=== PATIENT | female | born 1990 | race Caucasian/White ===

== ENCOUNTER → 2019-01-01 11:34 | Outpatient (CLI) | payer OTHER, MEDICAID, SELFPAY ==
[2019-01-01 12:32] LABS: Hematocrit 38.9 % (36-46); Hemoglobin 13.1 g/dL (12.0-16.0); Mean Corpuscular HGB Conc 33.7 % (30-36); Mean Corpuscular Hemoglobin 31.7 PG (26-34); Mean Corpuscular Volume 94.1 fL (80-100); Platelet Count 282 X10^3/uL (150-400); Red Blood Cell Count 4.14 X10^6/uL (4.0-5.2); White Blood Cell Count 7.6 X10^3/uL (4.5-11.0)
[2019-01-01 12:55] LABS: Alanine Aminotransferase 11 IU/L (<35); Albumin 4.3 g/dL (3.5-5.0); Albumin Globulin Ratio 1.5 (1.0-2.8); Alkaline Phosphatase 68 U/L (38-126); Aspartate Aminotransferase 20 IU/L (14-36); BUN Creatinine Ratio 8.9 (6-22); Bilirubin Total 0.3 mg/dL (0.2-1.3); Blood Urea Nitrogen 8 mg/dL (7-17); Calcium 9.5 mg/dL (8.4-10.2); Carbon Dioxide 26 mmol/L (22-32); Chloride 105 mmol/L (98-107); Cholesterol 142 mg/dL (140-199); Estimated Glomerular Filt Rate > 60.0 mL/min (>60); Globulin 2.9 g/dL (1.7-4.1); Glucose 95 mg/dL (70-100); HDL Cholesterol 45 mg/dL (40-60); HEMOLYSIS < 15 (0-50); LDL Cholesterol Calculated 85 mg/dL (<100); Potassium 4.4 mmol/L (3.4-5.1); Sodium 141 mmol/L (137-145); Total Protein 7.2 g/dL (6.3-8.2); Triglycerides 59 mg/dL (35-150)
== END ==
PROVIDERS: PCP Nurse Practitioner Family; Visit Provider Nurse Practitioner Family
DX: Z00.00 Encounter for general adult medical examination without abnormal findings (principal); Z13.6 Encounter for screening for cardiovascular disorders
CPT/HCPCS: 36415; 80053; 80061; 85027

== ENCOUNTER → 2019-04-12 16:35 | Outpatient (CLI) | payer OTHER, MEDICAID, SELFPAY ==
--- NOTE | 2019-04-19 16:27 | PM.PFT.1 ---
Pulmonary Function Test Referral & Results Date Patient Seen: 04/12/19 Requesting provider: Vannessa Jean Results: The spirometry demonstrates an FVC of 3.76 L which is 102% of predicted. The FEV1 was measured at 3.35 L which is 107% of predicted. The FEV1/FVC ratio was 89 which is 104% of predicted. Following the administration of bronchodilator there was no appreciable change to above normal numbers. Lung volumes show an SVC of 3.43 L which is 94% of predicted. The diffusing capacity was measured at 24.34 which is 106% of predicted. The maximum voluntary ventilation was minimally reduced Interpretation: This study demonstrates normal pulmonary function
== END ==
PROVIDERS: PCP Nurse Practitioner Family; Referring Provider Nurse Practitioner Family; Visit Provider Nurse Practitioner Family
DX: R06.02 Shortness of breath (principal); F17.200 Nicotine dependence, unspecified, uncomplicated
CPT/HCPCS: 94060; 94726; 94729

== ENCOUNTER 2019-10-22 17:31 | Emergency (ER) | payer OTHER, MEDICAID, SELFPAY ==
[2019-10-22 17:35] VITALS: BP 126/87; PULSE 66; RESP 20; O2SAT 99
--- NOTE | 2019-10-22 17:37 | DI.RAD.S_ITS ---
PROCEDURE: XR WRIST LT MIN 3V INDICATIONS: glf, lt wrist/elbow/shoulder pain TECHNIQUE: 4 views of the wrist were acquired. COMPARISON: [facility], CR, XR SHOULDER LT MIN 2V, 10/22/2019, 17:27. [facility], CR, XR ELBOW LT MIN 3V, 10/22/2019, 17:27. FINDINGS: Bones: No fractures or dislocations. No suspicious bony lesions. Scaphoid view: No navicular fractures are seen. Soft tissues: No suspicious soft tissue calcifications. IMPRESSION: No displaced fractures are seen. If there is snuffbox tenderness (or other clinical suspicion for a fracture not seen on these images) then a repeat examination would be recommended in 10 to 14 days, following splinting. Dictated by: Aníbal Nelson M.D. on 10/22/2019 at 16:57 Approved by: Aníbal Nelson M.D. on 10/22/2019 at 16:58
--- NOTE | 2019-10-22 17:37 | DI.RAD.S_ITS ---
PROCEDURE: XR ELBOW LT MIN 3V INDICATIONS: glf, lt wrist/elbow/shoulder pain TECHNIQUE: 3 views of the elbow were acquired. COMPARISON: [facility], CR, XR SHOULDER LT MIN 2V, 10/22/2019, 17:27. [facility], CR, XR WRIST LT MIN 3V, 10/22/2019, 17:27. FINDINGS: Bones: No fractures or dislocations. No suspicious bony lesions. Soft tissues: No elbow joint effusion. No suspicious soft tissue calcifications. IMPRESSION: No significant plain film abnormality is seen. Dictated by: Aníbal Nelson M.D. on 10/22/2019 at 16:57 Approved by: Aníbal Nelson M.D. on 10/22/2019 at 16:57
--- NOTE | 2019-10-22 17:38 | DI.RAD.S_ITS ---
PROCEDURE: XR SHOULDER LT MIN 2V INDICATIONS: glf, lt wrist/elbow/shoulder pain TECHNIQUE: 3 views of the shoulder were acquired. COMPARISON: [facility], CR, XR ELBOW LT MIN 3V, 10/22/2019, 17:27. [facility], CR, XR WRIST LT MIN 3V, 10/22/2019, 17:27. FINDINGS: Bones: No fractures or dislocations. No suspicious bony lesions. Visualized ribs appear intact. Soft tissues: No suspicious soft tissue calcifications. The visualized lung demonstrates an unremarkable appearance. IMPRESSION: Normal shoulder plain films. Dictated by: Aníbal Nelson M.D. on 10/22/2019 at 16:56 Approved by: Aníbal Nelson M.D. on 10/22/2019 at 16:57
--- NOTE | 2019-10-22 17:42 | ED.UPPEXIN ---
HPI - Extremity Injury (Upper) General Chief Complaint: Extremity Injury, Upper Stated Complaint: LEFT ARM INJURY, WRIST TO SHOULDER Time Seen by Provider: 10/22/19 17:35 Source: patient Mode of arrival: Ambulatory Limitations: no limitations History of Present Illness HPI narrative: Patient is a 29-year-old female who presents with left arm injury. She tripped going up a couple stairs and landed on her left side. Her shoulder hurts her elbow hurts her wrist hurts. She says she had a hard time driving over here. She denies any other injury she has no numbness tingling or weakness. MD complaint: injury to: left, shoulder, arm, elbow and wrist Related Data Previous Rx's Medication Instructions Recorded hydroxyzine pamoate 25 mg capsule 25 mg PO BID PRN #60 cap 01/01/19 albuterol sulfate 90 mcg/actuation 2 puff INHALATION Q4-6H PRN #8.5 02/27/19 aerosol inhaler gram mometasone 100 mcg/actuation HFA 1 puff INHALATION BID #13 gram 02/27/19 aerosol inhaler sertraline 50 mg tablet 50 mg PO DAILY #90 tab 02/27/19 fluticasone propionate 50 2 spray NASAL DAILY #9.9 ml 04/19/19 mcg/actuation nasal spray,suspension baclofen 10 mg tablet 10 mg PO BID #60 tab 07/30/19 omeprazole 20 mg capsule,delayed 20 mg PO DAILY #90 cap 08/20/19 release naproxen 500 mg tablet 500 mg PO BID #90 tab 09/11/19 montelukast 10 mg tablet 10 mg PO DAILY #90 tab 09/16/19 Allergies Allergy/AdvReac Type Severity Reaction Status Date / Time peanut Allergy Unknown unsure, Verified 07/30/19 15:20 was tested and showed allergy Review of Systems Review of Systems Narrative: GENERAL: Denies chills,fever HEENT: Denies throat pain RESPIRATORY: Denies dyspnea, cough, wheezing CARDIOVASCULAR: Denies chest pain, palpitations GASTROINTESTINAL: Denies nausea, vomiting MUSCULOSKELETAL: See HPI SKIN: No rash, no laceration, no pruritus NEUROLOGIC: Denies weakness, dizziness, headache, numbness 8 point review of systems is negative except for those stated above and HPI Patient History Medical History Acne (Chronic) ADHD (Chronic) Allergies (Chronic) Anxiety (Acute) Asthma (Chronic) Chronic back pain (Chronic) Depression (Acute) GERD (gastroesophageal reflux disease) (Acute 1999) Headache (Chronic) History of bipolar disorder (Chronic) Migraines (Chronic) Neck muscle strain (Acute) Panic (Acute) Restless leg syndrome (Chronic) Shortness of breath (Acute 2017) Vision disorder (Chronic) Social History Smoking Status: Current some day smoker Tobacco: How many years used: 1 second hand exposure: No alcohol intake: current (once a month if that) substance use type: marijuana (edibles, smoke, once a night to help with sleep) Smoking Status: Current some day smoker Exam Initial Vital Signs Initial Vital Signs: Vital Signs Pulse Rate 66 10/22/19 17:35 Respiratory Rate 20 10/22/19 17:35 Blood Pressure 126/87 10/22/19 17:35 Pulse Oximetry 99 10/22/19 17:35 GENERAL: Well-appearing, well-nourished and in no acute distress. CARDIOVASCULAR: peripheral pulses in tact, cap refill <2 sec RESPIRATORY: No respiratory distress, speaks in full sentences without difficulty EXTREMITIES: Normal range of motion, no clubbing or edema. Neurovascularly intact NEUROLOGICAL: Cranial nerves II through XII grossly intact. Normal gait and speech. SKIN: Warm, dry, no petechiae, no rashes or lesions. Course Orders Ordered: Discontinued Medications Acetaminophen (Tylenol) 975 mg PO NOW ONE Stop: 10/22/19 17:41 Last Admin: 10/22/19 17:53 Dose: 975 mg Documented by: TYESHA Vital Signs Vital signs: Vital Signs - 8 hr 10/22/19 17:35 Pulse Rate 66 Respiratory Rate 20 Blood Pressure 126/87 Pulse Oximetry 99 MDM - Extremity Injury (Upper) Imaging Data Extremity x-ray #1: Radiologist's Impression: PROCEDURE: XR ELBOW LT MIN 3V INDICATIONS: glf, lt wrist/elbow/shoulder pain TECHNIQUE: 3 views of the elbow were acquired. COMPARISON: [facility], CR, XR SHOULDER LT MIN 2V, 10/22/2019, 17:27. [facility], CR, XR WRIST LT MIN 3V, 10/22/2019, 17:27. FINDINGS: Bones: No fractures or dislocations. No suspicious bony lesions. Soft tissues: No elbow joint effusion. No suspicious soft tissue calcifications. IMPRESSION: No significant plain film abnormality is seen. Dictated by: Aníbal Nelson M.D. on 10/22/2019 at 16:57 Extremity x-ray #2: Radiologist's Impression: PROCEDURE: XR WRIST LT MIN 3V INDICATIONS: glf, lt wrist/elbow/shoulder pain TECHNIQUE: 4 views of the wrist were acquired. COMPARISON: [facility], CR, XR SHOULDER LT MIN 2V, 10/22/2019, 17:27. [facility], CR, XR ELBOW LT MIN 3V, 10/22/2019, 17:27. FINDINGS: Bones: No fractures or dislocations. No suspicious bony lesions. Scaphoid view: No navicular fractures are seen. Soft tissues: No suspicious soft tissue calcifications. IMPRESSION: No displaced fractures are seen. If there is snuffbox tenderness (or other clinical suspicion for a fracture not seen on these images) then a repeat examination would be recommended in 10 to 14 days, following splinting. Dictated by: Aníbal Nelson M.D. on 10/22/2019 at 16:57 Approved by: Aníbal Nelson M.D. on 10/22/2019 at 16:58 Extremity x-ray #3: Radiologist's Impression: PROCEDURE: XR SHOULDER LT MIN 2V INDICATIONS: glf, lt wrist/elbow/shoulder pain TECHNIQUE: 3 views of the shoulder were acquired. COMPARISON: [facility], CR, XR ELBOW LT MIN 3V, 10/22/2019, 17:27. [facility], CR, XR WRIST LT MIN 3V, 10/22/2019, 17:27. FINDINGS: Bones: No fractures or dislocations. No suspicious bony lesions. Visualized ribs appear intact. Soft tissues: No suspicious soft tissue calcifications. The visualized lung demonstrates an unremarkable appearance. IMPRESSION: Normal shoulder plain films. Dictated by: Aníbal Nelson M.D. on 10/22/2019 at 16:56 Discharge Plan Departure Patient Disposition: Home Clinical Impression: Sprain of left upper arm Qualifiers: Encounter type: initial encounter Qualified Code(s): S53.402A - Unspecified sprain of left elbow, initial encounter Discharge Date/Time: 10/22/19 18:00 Instructions: DI for Arm Pain Activity Restrictions/Additional Instructions: *You have been diagnosed with left arm sprain *What to do: Ice 20 minutes at a time if needed increase activity as tolerated *Continue to take medications as directed Ibuprofen 800 mg every 8 hours if needed for pain Tylenol 1000 mg every 6 hours if needed for pain *Follow up with your primary care provider in 2-3 days *Return to ER if you should have increased weakness numbness or tingling or any new, worsening or concerning symptoms Prescriptions: No Action fluticasone propionate [Flonase Allergy Relief] 50 mcg/actuation spray,suspension 2 spray NASAL DAILY Qty: 9.9 RF: 2 omeprazole 20 mg capsule,delayed release(DR/EC) 20 mg PO DAILY Qty: 90 RF: 1 naproxen 500 mg tablet 500 mg PO BID Qty: 90 RF: 0 montelukast [Singulair] 10 mg tablet 10 mg PO DAILY Qty: 90 RF: 1 Asmanex HFA 100 mcg/actuation HFA aerosol inhaler 1 puff INHALATION BID Qty: 13 RF: 0 albuterol sulfate 90 mcg/actuation HFA aerosol inhaler 2 puff INHALATION Q4-6H PRN (Reason: shortness of breath or wheezing) Qty: 8.5 RF: 2 sertraline 50 mg tablet 50 mg PO DAILY Qty: 90 RF: 2 hydroxyzine pamoate [Vistaril] 25 mg capsule 25 mg PO BID PRN (Reason: panic) Qty: 60 RF: 0 baclofen 10 mg tablet 10 mg PO BID Qty: 60 RF: 0 Referrals: Vannessa Jean ARNP [Primary Care Provider] -
[2019-10-22] MEDS: ACETAMINOPHEN 325 MG TABLET 975 MG PO (17:53)
== END 2019-10-22 18:00 | disposition home or self-care (01) ==
PROVIDERS: Emergency Provider Emergency Medicine; PCP Nurse Practitioner Family
DX: S53.402A Unspecified sprain of left elbow, initial encounter (principal); W19.XXXA Unspecified fall, initial encounter
CPT/HCPCS: 73030; 73080; 73110; 99283

== ENCOUNTER → 2021-02-17 10:22 | Outpatient (CLI) | payer OTHER, MEDICAID, SELFPAY ==
--- NOTE | 2021-02-17 10:26 | DI.RAD.S_ITS ---
PROCEDURE: XR HAND LT MIN 3V INDICATIONS: Pain at base of left 3rd finger TECHNIQUE: Three views of the hand(s) acquired. COMPARISON: None. FINDINGS: Bones: No fractures or dislocations. Carpal bones are normally aligned. No suspicious bony lesions. Soft tissues: No suspicious soft tissue calcifications. IMPRESSION: Normal left hand. Dictated by: Benita Franco M.D. on 02/17/2021 at 10:49 Approved by: Benita Franco M.D. on 02/17/2021 at 10:54
== END ==
PROVIDERS: PCP Nurse Practitioner Family; Referring Provider Nurse Practitioner; Visit Provider Nurse Practitioner
DX: M79.642 Pain in left hand (principal)
CPT/HCPCS: 73130